=== PATIENT | male | born 1990 | race Caucasian/White ===

== ENCOUNTER 2021-02-23 12:07 | Inpatient (IN) | payer OTHER ==
[2021-02-23 12:29] LABS: Glucose,Whole Blood 128 mg/dL (75-99)
[2021-02-23 12:34] LABS: Basophils # (A) 0.1 k/uL (0-0.2); Basophils % (A) 1 %; Eosinophils # (A) 0.3 k/uL (0-0.7); Eosinophils % (A) 3 %; HCT 43.6 % (39.0-53.0); HGB 15.2 gm/dL (13.0-17.5); Lymphocytes # (A) 2.4 k/uL (1.0-4.8); Lymphocytes % (A) 23 %; MCH 31.9 pg (25.0-35.0); MCHC 34.8 g/dL (31.0-37.0); MCV 91.7 fL (80.0-100.0); Mean Platelet Volume 6.8; Monocytes # (A) 0.4 k/uL (0-1.0); Monocytes % (A) 4 %; Neutrophils # (A) 7.1 k/uL (1.3-7.7); Neutrophils % (A) 68 %; Platelet Count 347 k/uL (150-450); RBC 4.75 m/uL (4.30-5.90); RDW 11.9 % (11.5-15.5); WBC 10.4 k/uL (3.8-10.6)
[2021-02-23 12:41] LABS: ALT 495 U/L (4-49); AST 599 U/L (17-59); African American GFR (CKD) >90 (>60 ml/min/1.73 sqM); Alkaline Phosphatase 80 U/L (38-126); Anion Gap 11 mmol/L; Blood Urea Nitrogen 10 mg/dL (9-20); Calcium 9.7 mg/dL (8.4-10.2); Carbon Dioxide 25 mmol/L (22-30); Chloride 103 mmol/L (98-107); Creatine Kinase 152 U/L (55-170); Glucose 137 mg/dL (74-99); Non-African American GFR(CKD) >90 (>60 ml/min/1.73 sqM); Potassium 4.5 mmol/L (3.5-5.1); Sodium 139 mmol/L (137-145); Total Bilirubin 0.7 mg/dL (0.2-1.3); Total Protein 8.2 g/dL (6.3-8.2)
[2021-02-23 12:44] LABS: Alcohol 81 mg/dL
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
--- NOTE | 2021-02-23 12:51 | XR ---
EXAMINATION TYPE: XR chest 1V portable DATE OF EXAM: 02/23/2021 COMPARISON: NONE HISTORY: Pain TECHNIQUE: Single frontal view of the chest is obtained. FINDINGS: There is no focal air space opacity, pleural effusion, or pneumothorax seen. The cardiac silhouette size is within normal limits. The osseous structures are intact. Limited inspiration. He art size normal. IMPRESSION: No acute process.
[2021-02-23 12:53] LABS: Prothrombin Time 10.9 sec (9.0-12.0)
[2021-02-23 12:56] LABS: Partial Thromboplastin Time 20.7 sec (22.0-30.0)
[2021-02-23] MEDS ORDERED: ACETAMINOPHEN TAB 500 MG TAB PO STA (13:13)
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
--- NOTE | 2021-02-23 14:32 | XR ---
EXAMINATION TYPE: XR ankle complete RT DATE OF EXAM: 02/23/2021 COMPARISON: NONE HISTORY: Pain FINDINGS: Three views of the ankle demonstrate the ankle mortise to be intact and symmetric. There is a linear lucency through the distal fibula compatible with an oblique fracture which appears to be comminuted. Mild displacement. Remaining osseous structures intact. There is soft tissue edema. IMPRESSION: 1. Oblique fracture comminuted distal fibula with minimal displacement.
--- NOTE | 2021-02-23 14:32 | XR ---
EXAMINATION TYPE: XR elbow complete RT DATE OF EXAM: 02/23/2021 COMPARISON: NONE HISTORY: Pain FINDINGS: Three views of the elbow demonstrate no pathologic joint effusion. The osseous structures are intact . There is no acute fracture or dislocation. IMPRESSION: 1. No acute fracture or dislocation. If symptoms persist follow-up study in 7 to 10 days could be ob tained.
--- NOTE | 2021-02-23 14:33 | XR ---
EXAMINATION TYPE: XR foot complete RT DATE OF EXAM: 02/23/2021 COMPARISON: NONE HISTORY: Pain TECHNIQUE: Three views are submitted. FINDINGS: Mild hypertrophic change first MTP there is no oblique fracture through the distal fibula. Remaining osseous structures intact. IMPRESSION: 1. Oblique fracture distal fibula with minimal displacement.
--- NOTE | 2021-02-23 14:35 | XR ---
EXAMINATION TYPE: XR knee complete RT DATE OF EXAM: 02/23/2021 COMPARISON: NONE HISTORY: Pain TECHNIQUE: Three views are submitted. FINDINGS: Joint spaces are preserved. Osseous structures are intact. No acute fracture seen. Deformity invol ving the superior lateral margin the patella most typical bipartite patella. IMPRESSION: 1. Findings involving the patella favor bipartite patella over fracture correlate with point tenderne ss..
--- NOTE | 2021-02-23 14:36 | XR ---
EXAMINATION TYPE: XR tibia fibula RT DATE OF EXAM: 02/23/2021 COMPARISON: NONE HISTORY: Pain TECHNIQUE: Two views are submitted. FINDINGS: Minimally displaced comminuted fracture distal fibula. Soft tissue edema noted. Abnormality involving the patella most likely bipartite patella correlate with point tenderness. IMPRESSION: 1. Comminuted minimally displaced fracture oblique orientation distal fibula.
[2021-02-23] MEDS ORDERED: NALOXONE 0.4 MG/ML 1 ML VIAL IV PRN ×2 (15:14→17:54)
[2021-02-23] MEDS ORDERED: ONDANSETRON 4 MG/2 ML VIAL IVP STA (15:23)
[2021-02-23] MEDS ORDERED: HYDROmorphone 0.5 MG/0.5 ML SYRINGE IVP STA (15:23)
[2021-02-23] MEDS ORDERED: HYDROmorphone 1 MG/ML 1 ML SYRINGE IVP STA (16:06)
[2021-02-23] MEDS: SODIUM CHLORIDE 0.9% 1,000 ML IV SCH ×2 (16:28→23:22)
[2021-02-23] MEDS: HYDROmorphone 1 MG/ML 1 ML SYRINGE IVP STA ×2 (17:08→17:28)
[2021-02-23] MEDS ORDERED: ACETAMINOPHEN TAB 325 MG TAB PO PRN (17:54)
[2021-02-23] MEDS ORDERED: METOCLOPRAMIDE 5 MG/ML 2 ML VIAL IVP PRN (17:54)
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
--- NOTE | 2021-02-23 18:03 | XR ---
PROCEDURE: XR ankle limited RT - 2V DATE AND TIME: 02/23/2021 5:24 PM CLINICAL INDICATION: PHH; post splint/reduction TECHNIQUE: Department protocol COMPARISON: 02/23/2021 radiographs 1:49 PM FINDINGS: AP and lateral postreduction views were obtained through casting material. The previously s een fractures are redemonstrated. IMPRESSION: Post reduction study.
[2021-02-23] MEDS: HYDROmorphone 0.5 MG/0.5 ML SYRINGE IVP PRN ×2 (18:37→22:09)
[2021-02-23] MEDS: ONDANSETRON 4 MG/2 ML VIAL IVP PRN (19:45)
[2021-02-23 22:44] LABS: Appearance,Urine Clear (Clear); Bilirubin,Urine Negative (Negative); Blood,Urine Trace (Negative); Color,Urine Yellow; Glucose,Urine (UA) Negative (Negative); Ketones,Urine 1+ (Negative); Leukocyte Esterase,Urine Negative (Negative); Mucus,Urine Rare /hpf; Nitrite,Urine Negative (Negative); Protein,Urine 1+ (Negative); RBC,Urine 7 /hpf (0-5); Squamous Epithelial Cell,Urine <1 /hpf (0-4); Urobilinogen,Urine <2.0 mg/dL (<2.0); WBC,Urine 2 /hpf (0-5)
[2021-02-23 22:45] LABS: Amphetamine Screen,Urine Not Detected (NotDetected); Barbiturate Screen,Urine Not Detected (NotDetected); Benzodiazepines Screen,Urine Not Detected (NotDetected); Cocaine Screen,Urine Not Detected (NotDetected); Methadone Screen, Urine Not Detected (NotDetected); Opiate Screen,Urine Detected (NotDetected); Oxycodone Screen, Urine Not Detected (NotDetected); Phencyclidine Screen,Urine Not Detected (NotDetected); Tricyclic Antidepressant,Urine Not Detected (NotDetected); Urn Cannabinoid Scrn Detected (NotDetected)
[2021-02-23 22:48] LABS: Specific Gravity,Urine >1.050 (1.001-1.035)
[2021-02-23] MEDS: DOCUSATE 100 MG CAP PO SCH (23:13)
[2021-02-23] MEDS: HYDROcodone/APAP 5-325MG 1 EACH TAB PO PRN (23:18)
[2021-02-23] MEDS: HEPARIN SODIUM,PORCINE/PF 5,000 UNIT/0.5 ML SYRINGE SQ SCH (23:26)
[2021-02-24] MEDS: HYDROmorphone 0.5 MG/0.5 ML SYRINGE IVP PRN ×4 (02:01→10:58)
[2021-02-24 06:49] LABS: Basophils % (A) 0 %; Eosinophils # (A) 0.3 k/uL (0-0.7); Eosinophils % (A) 2 %; HCT 39.8 % (39.0-53.0); HGB 13.8 gm/dL (13.0-17.5); Lymphocytes # (A) 1.6 k/uL (1.0-4.8); Lymphocytes % (A) 15 %; MCH 32.1 pg (25.0-35.0); MCHC 34.7 g/dL (31.0-37.0); MCV 92.5 fL (80.0-100.0); Mean Platelet Volume 6.7; Monocytes # (A) 0.5 k/uL (0-1.0); Monocytes % (A) 5 %; Neutrophils # (A) 8.3 k/uL (1.3-7.7); Neutrophils % (A) 77 %; Platelet Count 247 k/uL (150-450); RDW 11.9 % (11.5-15.5); WBC 10.9 k/uL (3.8-10.6)
[2021-02-24 07:04] LABS: ALT 317 U/L (4-49); AST 230 U/L (17-59); African American GFR (CKD) >90 (>60 ml/min/1.73 sqM); Albumin 4.2 g/dL (3.5-5.0); Alkaline Phosphatase 66 U/L (38-126); Anion Gap 6 mmol/L; Blood Urea Nitrogen 9 mg/dL (9-20); Calcium 9.3 mg/dL (8.4-10.2); Carbon Dioxide 28 mmol/L (22-30); Chloride 102 mmol/L (98-107); Glucose 104 mg/dL (74-99); Non-African American GFR(CKD) >90 (>60 ml/min/1.73 sqM); Potassium 4.5 mmol/L (3.5-5.1); Sodium 136 mmol/L (137-145); Total Bilirubin 1.1 mg/dL (0.2-1.3); Total Protein 6.9 g/dL (6.3-8.2)
[2021-02-24] MEDS: PANTOPRAZOLE 40 MG/10 ML VIAL IV SCH (08:11)
[2021-02-24] MEDS: HEPARIN SODIUM,PORCINE/PF 5,000 UNIT/0.5 ML SYRINGE SQ SCH ×3 (08:12→21:06)
[2021-02-24] MEDS: DOCUSATE 100 MG CAP PO SCH ×2 (08:12→21:04)
[2021-02-24] MEDS: lisinopriL 20 MG TAB PO SCH (08:12)
[2021-02-24] MEDS: SODIUM CHLORIDE 0.9% 1,000 ML IV SCH (08:12)
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
[2021-02-24] MEDS: ONDANSETRON 4 MG/2 ML VIAL IVP PRN (08:19)
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
[2021-02-24] MEDS: HYDROcodone/APAP 5-325MG 1 EACH TAB PO PRN ×3 (13:31→21:04)
[2021-02-24] MEDS: IBUPROFEN 600 MG TAB PO PRN (16:07)
[2021-02-25] MEDS: HYDROcodone/APAP 5-325MG 1 EACH TAB PO PRN ×3 (04:22→14:30)
[2021-02-25] MEDS: DOCUSATE 100 MG CAP PO SCH ×2 (09:32→21:20)
[2021-02-25] MEDS: PANTOPRAZOLE 40 MG/10 ML VIAL IV SCH (09:32)
[2021-02-25] MEDS: lisinopriL 20 MG TAB PO SCH (09:32)
[2021-02-25] MEDS: HEPARIN SODIUM,PORCINE/PF 5,000 UNIT/0.5 ML SYRINGE SQ SCH ×2 (09:33→16:34)
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
[2021-02-25] MEDS: HYDROmorphone 0.5 MG/0.5 ML SYRINGE IVP PRN (12:43)
[2021-02-25] MEDS: amLODIPine 5 MG TAB PO SCH (14:30)
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
[2021-02-25] MEDS: HYDROcodone/APAP 10-325MG 1 EACH TAB PO PRN (17:50)
[2021-02-26] MEDS: HYDROcodone/APAP 10-325MG 1 EACH TAB PO PRN ×4 (03:02→20:44)
[2021-02-26] MEDS: HEPARIN SODIUM,PORCINE/PF 5,000 UNIT/0.5 ML SYRINGE SQ SCH ×3 (03:04→15:52)
[2021-02-26] MEDS: PANTOPRAZOLE 40 MG/10 ML VIAL IV SCH (08:24)
[2021-02-26] MEDS: lisinopriL 20 MG TAB PO SCH (08:25)
[2021-02-26] MEDS: amLODIPine 5 MG TAB PO SCH (08:25)
[2021-02-26] MEDS: DOCUSATE 100 MG CAP PO SCH ×2 (08:25→20:44)
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
[2021-02-26] MEDS ORDERED: amLODIPine 10 MG TAB PO SCH (10:45)
[2021-02-26] MEDS ORDERED: amLODIPine 5 MG TAB PO ONE (11:00)
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
[2021-02-27] MEDS: HEPARIN SODIUM,PORCINE/PF 5,000 UNIT/0.5 ML SYRINGE SQ SCH ×3 (02:05→17:33)
[2021-02-27] MEDS: IBUPROFEN 600 MG TAB PO PRN (02:37)
[2021-02-27 08:18] VITALS: RESP 18
[2021-02-27] MEDS: PANTOPRAZOLE 40 MG/10 ML VIAL IV SCH (08:27)
[2021-02-27] MEDS: DOCUSATE 100 MG CAP PO SCH (08:27)
[2021-02-27] MEDS: lisinopriL 20 MG TAB PO SCH (08:27)
[2021-02-27] MEDS ORDERED: amLODIPine 10 MG TAB PO SCH (09:00)
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
[2021-02-27] MEDS: HYDROcodone/APAP 10-325MG 1 EACH TAB PO PRN (14:50)
[2021-02-27 15:41] VITALS: BP 139/80; PULSE 84; TEMP 98.6
== END 2021-02-27 18:43 | disposition home or self-care (01) | DRG 552 ==
LOC: EC 12:07 → 5NMEDONC 15:14 → 1SOBS 19:32 → 4SSUR 21:52 → OBSVTOIN 02-24 11:31
PROVIDERS: ADMIT Surgery; ATTEND Surgery
DX: S22.081A Stable burst fracture of T11-T12 vertebra, initial encounter for closed fracture (principal); S32.009A Unspecified fracture of unspecified lumbar vertebra, initial encounter for closed fracture; M48.54XA Collapsed vertebra, not elsewhere classified, thoracic region, initial encounter for fracture; S82.831A Other fracture of upper and lower end of right fibula, initial encounter for closed fracture; V89.2XXA Person injured in unspecified motor-vehicle accident, traffic, initial encounter; W22.09XA Striking against other stationary object, initial encounter; I10 Essential (primary) hypertension; Y90.4 Blood alcohol level of 80-99 mg/100 ml; Y92.410 Unspecified street and highway as the place of occurrence of the external cause; Z79.899 Other long term (current) drug therapy; Z20.822 Contact with and (suspected) exposure to COVID-19
CPT/HCPCS: 36415; 70450; 71045; 71260; 72125; 72129; 72132; 72170; 74177; 80053; 80306; 80320; 81001; 82550; 83605; 84484; 85025; 85610; 85730; 87636; 93005; 94760; 99285

== ENCOUNTER 2022-01-10 09:29 | Day surgery (SDC) | payer OTHER ==
--- NOTE | 2022-01-10 08:42 | P.GSHP ---
History of Present Illness H&P Date: 01/10/22 CHIEF COMPLAINT: GERD and colon screen HISTORY OF PRESENT ILLNESS: The patient is a 31-year-old male who presents with gastrointestinal bleeding. Upper and lower endoscopy were offered for further evaluation and management. PAST MEDICAL HISTORY: Please see list. PAST SURGICAL HISTORY: Please see list. MEDICATIONS: Please see list. ALLERGIES: Please see list. SOCIAL HISTORY: No illicit drug use FAMILY HISTORY: No reports of Crohn disease or ulcerative colitis. REVIEW OF ORGAN SYSTEMS: CONSTITUTIONAL: No reports of fevers or chills. PHYSICAL EXAM: VITAL SIGNS: Stable GENERAL: Well-developed pleasant in no acute distress. HEENT: No scleral icterus. Extraocular movements grossly intact. Moist buccal mucosa. NECK: Supple without lymphadenopathy. CHEST: Unlabored respirations. Equal bilateral excursions. CARDIOVASCULAR: Regular rate and rhythm. Distal 2+ pulses. ABDOMEN: Soft, nondistended. MUSCULOSKELETAL: No clubbing, cyanosis, or edema. ASSESSMENT: 1. Gastrointestinal bleeding PLAN: 1. Recommend proceeding with an upper and lower endoscopy Past Medical History Past Medical History: Hypertension History of Any Multi-Drug Resistant Organisms: None Reported Past Surgical History: No Surgical Hx Reported Additional Past Surgical History / Comment(s): left thumb surgery Past Anesthesia/Blood Transfusion Reactions: No Reported Reaction Past Psychological History: No Psychological Hx Reported Smoking Status: Never smoker Past Alcohol Use History: None Reported Past Drug Use History: None Reported Medications and Allergies Home Medications Medication Instructions Recorded Confirmed Type Multivitamins, Thera [Multivitamin 1 tab PO DAILY 02/23/21 02/23/21 History (formulary)] lisinopriL [Zestril] 20 mg PO DAILY 02/23/21 02/23/21 History oxyCODONE HCL [OxyIR] 5 mg PO Q6H PRN 3 Days #12 tab 02/24/21 Rx amLODIPine [Norvasc] 10 mg PO DAILY #30 tab 02/27/21 Rx Allergies Allergy/AdvReac Type Severity Reaction Status Date / Time hydrocodone AdvReac Nausea & Verified 02/23/21 13:04 Vomiting
[2022-01-10] MEDS ORDERED: LACTATED RINGERS 1,000 ML IV ONE (09:56)
[2022-01-10 10:02] VITALS: TEMP 98.1
[2022-01-10] MEDS ORDERED: MIDAZOLAM 2 MG/2 ML VIAL ONE (10:34)
[2022-01-10] MEDS ORDERED: PROPOFOL 10 MG/ML 20 ML VIAL IV ONE (10:34)
[2022-01-10] MEDS ORDERED: fentaNYL (PF) 50 MCG/ML 2 ML AMP ONE (10:34)
--- NOTE | 2022-01-10 10:47 | P.PCN ---
Date of Procedure: 01/10/22 Description of Procedure: PREOPERATIVE DIAGNOSIS: Gastrointestinal bleeding POSTOPERATIVE DIAGNOSIS: Gastritis with bleed Gastroesophageal reflux disease with erosive esophagitis OPERATION: Esophagogastroduodenoscopy with biopsies along antrum. SURGEON: Tracey Vines MD ANESTHESIA: MAC. INDICATIONS: The patient is a 31-year-old male who presents history of gastrointestinal bleeding. Benefits and risks of the procedure were described. Informed consent was obtained. DESCRIPTION: The patient was brought into the endoscopy suite and laid in the left lateral decubitus position. An Olympus gastroscope was passed along the posterior oropharynx down to the distal esophagus where the squamocolumnar junction was encountered at 41 cm from the incisors. The stomach was entered and no bile reflux was found. Additional findings are listed below. Biopsies with cold forceps were obtained of the antrum. The first through third portion of the duodenum was examined and unremarkable. Retroflexion of the scope confirmed Hill grade 2 lower esophageal valve. The squamocolumnar junction demonstrated LA grade B erosive esophagitis. The stomach was desufflated. The patient tolerated the procedure well. FINDINGS: Squamocolumnar junction 41 cm from the incisors. Diaphragmatic hiatus at 41 cm. Hill grade 2 lower esophageal valve. LA grade B erosive esophagitis. No active duodenitis. Chronic gastritis with recent bleed RECOMMENDATIONS: Upper endoscopy as needed.
[2022-01-10 11:17] VITALS: BP 138/95; PULSE 96; RESP 20
[2022-01-10] MEDS ORDERED: LACTATED RINGERS 1,000 ML IV SCH (11:20)
[2022-01-10] MEDS ORDERED: LIDOCAINE 1% (10MG/ML) FOR IV START INTRADERMA PRN (11:20)
--- NOTE | 2022-01-10 11:24 | P.PCN ---
Date of Procedure: 01/10/22 Description of Procedure: PREOPERATIVE DIAGNOSIS: Gastrointestinal bleeding POSTOPERATIVE DIAGNOSIS: History of gastrointestinal bleeding OPERATION: Colonoscopy to the cecum, ileocecal valve and appendiceal orifice. SURGEON: Tracey Vines MD. ANESTHESIA: MAC. INDICATIONS: The patient is a 31-year-old male who presents with recent gastrointestinal bleeding. Benefits and risks were described and informed consent was obtained. DESCRIPTION OF PROCEDURE: The patient had undergone S[place]ab prep. The patient had been brought into the operating room and laid in the left lateral decubitus position. After adequate intravenous sedation, the rectum was examined with 2% lidocaine jelly. No external hemorrhoids were encountered. The rectal tone was within normal limits. No lesions were palpated in the rectal vault. An Olympus colonoscope was advanced until the cecum, ileocecal valve and appendiceal orifice were clearly viewed. The prep was fair. No scattered diverticulosis was encountered. No colonic polyps were found. No evidence of focal colitis was found. Retroflexion of the scope demonstrated grade 1 internal hemorrhoids without active bleeding or inflammation. The colon was desufflated. The patient had tolerated the procedure well. Withdrawal time was over 6 minutes. FINDINGS: Aronchick preparation quality scale 3 (1-5) Internal hemorrhoids, grade 1 No external prolapsed hemorrhoids. No arteriovenous malformations. No adenomatous polyps. No focal colitis. RECOMMENDATIONS: Lower endoscopy as needed Plan - Discharge Summary New Discharge Prescriptions: Continue lisinopriL [Zestril] 20 mg PO DAILY Multivitamins, Thera [Multivitamin (formulary)] 1 tab PO DAILY HYDROcodone/APAP 7.5-325MG [[place] 7.5-325] 1 tab PO Q6HR PRN PRN Reason: Pain Discharge Medication List Multivitamins, Thera [Multivitamin (formulary)] 1 tab PO DAILY 02/23/21 [History] lisinopriL [Zestril] 20 mg PO DAILY 02/23/21 [History] HYDROcodone/APAP 7.5-325MG [[place] 7.5-325] 1 tab PO Q6HR PRN 01/10/22 [History] Follow up Appointment(s)/Referral(s): Tracey Vines MD [STAFF PHYSICIAN] - As Needed Patient Instructions/Handouts: Gastritis (DC), Diet for Stomach Ulcers and Gastritis (GEN) Discharge Disposition: HOME SELF-CARE
== END 2022-01-10 11:40 | disposition home or self-care (01) ==
LOC: ORWHC2ENDO 09:29
PROVIDERS: ATTEND Surgery Plastic and Reconstructive Surgery
DX: K29.51 Unspecified chronic gastritis with bleeding (principal); K22.11 Ulcer of esophagus with bleeding; K64.0 First degree hemorrhoids; I10 Essential (primary) hypertension; Z98.890 Other specified postprocedural states; Z79.899 Other long term (current) drug therapy; Z88.5 Allergy status to narcotic agent; Z87.11 Personal history of peptic ulcer disease; K92.2 Gastrointestinal hemorrhage, unspecified
CPT/HCPCS: 88305; 45378; 43239; J2250; J3010; J2704

== ENCOUNTER → 2022-01-19 | Outpatient (CLI) | payer OTHER ==
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
== END | disposition home or self-care (01) ==
LOC: RADMRIMAIN 17:27
PROVIDERS: ATTEND Orthopaedic Surgery Orthopaedic Surgery of the Spine
DX: M48.54XA Collapsed vertebra, not elsewhere classified, thoracic region, initial encounter for fracture (principal); Q06.9 Congenital malformation of spinal cord, unspecified
CPT/HCPCS: 72141; 72146; 72148

== ENCOUNTER → 2022-04-09 | Outpatient (CLI) | payer OTHER ==
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
[2022-04-09 14:04] VITALS: BP 186/121; PULSE 107; RESP 18; TEMP 98.3
== END ==
LOC: PNWHC3 13:07
PROVIDERS: ATTEND Specialist
DX: M51.26 Other intervertebral disc displacement, lumbar region (principal); M50.10 Cervical disc disorder with radiculopathy, unspecified cervical region; S33.5XXA Sprain of ligaments of lumbar spine, initial encounter; S22.009A Unspecified fracture of unspecified thoracic vertebra, initial encounter for closed fracture; I10 Essential (primary) hypertension
CPT/HCPCS: 99211

== ENCOUNTER → 2022-05-08 | Day surgery (SDC) | payer OTHER ==
[~2022-05-08] MED LIST: DEXAMETHASONE SOD PHOSPHATE 10 MG/ML 1 ML VIAL ONE; IOPAMIDOL M200 10 ML VIAL ONE; LACTATED RINGERS 1,000 ML IV SCH; LACTATED RINGERS 800 ML IV ONE; MIDAZOLAM 2 MG/2 ML VIAL ONE; fentaNYL (PF) 50 MCG/ML 2 ML AMP ONE
[2022-05-08 09:54] VITALS: TEMP 97
--- NOTE | 2022-05-08 10:07 | P.PCN ---
Date of Procedure: 05/08/22 Surgeon: Mary Knight Pathology: none sent Condition: stable Disposition: PACU Description of Procedure: PROCEDURE 1. Cervical epidural steroid injection under fluoroscopic guidance, C7-T1 left paramedian approach. 2. Cervical epidurogram. : PREOPERATIVE DIAGNOSIS: Cervical radiculopathy, cervical spondylosis without myelopathy POSTOPERATIVE DIAGNOSIS: : Same as above ANESTHESIA: Local anesthesia with 1% lidocaine and IV moderate conscious sedation with Versed and Fentanyl . EBL 0 PROCEDURE INDICATION: The patient with neck pain and radiculopathy unresponsive to conservative treatment consents for procedure. PROCEDURE DESCRIPTION / TECHNIQUE: The patient was seen and identified in the preoperative area. Risks, benefits, complications, including but not limited to infections ,bleeding , allergic reactions to the medications ,and not complete pain relief, and alternatives were discussed with the patient, the patient agreed to proceed with the procedure and signed the consent. Patient was taken to the OR and time out was completed. The patient was placed in the prone position on the procedure table. A pillow was placed under the patients chest to increase the flexion of the cervical spine . The cervical area was prepped and draped in the usual sterile fashion. Vital signs were closely monitored during the procedure. Conscious sedation was used during the procedure to decrease patients anxiety. Using anterior-posterior fluoroscopy, the C7-T1 interlaminar space was identified and the skin over this site was marked and then infiltrated with 1% lidocaine subcutaneously. Subsequently, a 20-gauge 3-1/2-inch Tuohy epidural needle was inserted and advanced toward the epidural space by means of loss of resistance to air technique and guided by AP and lateral fluoroscopy. The needle tip contacted the lamina of T1 vertebra first, then it was walked off bone and into the epidural space using the loss of to air and fluoroscopic guidance to identify the epidural space. The correct needle position in the epidural space was verified with the injection of 1 mL of the water soluble contrast dye Isovue and observing an excellent epidurogram with the epidural spread of the dye, after negative aspiration for blood and CSF and in the absence of paresthesias. Again after negative aspiration, a 2 ml mixture containing 10 mg of Decadron and 1 ml of preservative free Normal Saline solution was injected and a washout of epidurogram was seen. Needle was withdrawn intact, skin was cleansed, and bandages were applied. A copy of the needle placement picture was saved to the fluoroscopy machine.
[2022-05-08 10:26] VITALS: BP 125/83; PULSE 100; RESP 16
--- NOTE | 2022-05-08 10:49 | FL ---
Fluoroscopy History: CERV EPID STEROID INJ 5 secs fl time. 1 image sent to syn. Dr. Knight CERV EPID STEROID INJ.
== END ==
LOC: ORPAIN 09:16
PROVIDERS: ATTEND Anesthesiology
CPT/HCPCS: 62321; 99152